=== PATIENT | female | born 1980 | race Caucasian/White ===

== ENCOUNTER → 2017-10-11 | Outpatient (CLI) | payer OTHER ==
[~2017-10-11] MED LIST: ACETAMINOPHEN325 M1 PO; ALLEGRA-D 12 H1 EACH PO; ARNUITY ELLIPTA INH; CRESTOR10 MG PO; CYTOTEC100 MCG PO; IOPAMIDOL 300 MG/ML 15ML VIAL IT ONE; LOESTRIN1 EAC1 PO; PROZAC20 MG PO; ROBAXIN-750750 MG PO; SEROQUEL25 MG PO; VICODIN PO; WELLBUTRIN SR150 MG PO; ZYRTEC10 M3 PO
--- NOTE | 2017-10-11 12:49 | Diagnostic Imaging Report ---
PROCEDURE:X-RAY HYSEROSALPINGOGRAM COMPARISON:None. INDICATIONS: FERTILITY CHECK Fluoroscopy time: 0.7 minutes Air Kerma: 70.91 mGy TECHNIQUE: Informed consent was obtained. The skin of the external genitalia was sterilized with Betadine, and a sterile vaginal speculum was introduced with visualization of the cervix. Subsequently, a 5.5 [place] HSG balloon-tipped catheter was inserted into the endometrial cavity. The balloon was inflated with air and 10 cc of Isovue 300 was injected and multiple images in the frontal and bilateral oblique projections were obtained. The balloon was deflated and removed. The speculum was removed. FINDINGS: FALLOPIAN TUBES: Normal, patent bilaterally. There is prompt bilateral free peritoneal spillage of contrast. ENDOMETRIAL CAVITY: No filling defects or synechiae OTHER: Pelvic osseous structures are intact. CONCLUSION: Normal hysterosalpingogram. Dictated by: Umberto Mason M.D. on 10/11/2017 at 12:49 Electronically approved by: Umberto Mason M.D. on 10/11/2017 at 12:49
== END ==
LOC: DX 10:14
PROVIDERS: ATTEND Obstetrics & Gynecology
DX: Z31.9 Encounter for procreative management, unspecified (principal)
CPT/HCPCS: 58340; 74740; 81025; Q9967